=== PATIENT | female | born 1950 | race Caucasian/White ===

== ENCOUNTER → 2025-01-12 | Outpatient (CLI) | payer MEDICARE, OTHER | END | disposition home or self-care (01) | LOC: RADPV 09:44 | PROVIDERS: ATTEND Internal Medicine Cardiovascular Disease | DX: I08.1 Rheumatic disorders of both mitral and tricuspid valves (principal); I10 Essential (primary) hypertension; R07.89 Other chest pain | CPT/HCPCS: 93306 ==